=== PATIENT | female | born 1965 | race Caucasian/White ===

== ENCOUNTER 2025-02-21 20:34 | Emergency (ER) | payer SELFPAY ==
[2025-02-21 20:35] VITALS: BP 111/70; PULSE 94; RESP 18; TEMP 36.4; O2SAT 100
[2025-02-21 20:46] VITALS: BMI 23.6
[2025-02-21 21:35] VITALS: BP 113/68; PULSE 81; RESP 18; O2SAT 95
--- NOTE | 2025-02-21 21:36 | EKG12_ITS ---
Test Reason : CP Blood Pressure : */* mmHG Vent. Rate : 90 BPM Atrial Rate : 90 BPM P-R Int : 164 ms QRS Dur : 92 ms QT Int : 328 ms P-R-T Axes : 68 65 56 degrees QTcB Int : 401 ms Normal sinus rhythm Normal ECG Confirmed by EDENILSON GRACE, DAVID ([id number]), publications editor EMIL MILLIGAN ([id number]) on 02/22/2025 11:11:12 AM Referred By: [facility]G Confirmed By: DAVID PYLE MD
[2025-02-21 21:38] VITALS: O2SAT 97
--- NOTE | 2025-02-21 21:40 | RAD_ITS ---
PROCEDURE: CHEST 1 VIEW (PORTABLE) 02/21/2025 REASON FOR EXAM: CHEST PAIN TECHNIQUE: Frontal view of the chest. COMPARISON: None FINDINGS: 2.5 x 2.4 cm circular opacity within the right lower lobe may reflect a pulmonary nodule or external to lungs. Otherwise no focal consolidations. Bibasilar subsegmental atelectasis. No pleural effusion or pneumothorax. Cardiac silhouette is within normal limits. RAD/Chest 1 View (Portable) IMPRESSION: 2.5 x 2.4 cm circular opacity within the right lower lobe may reflect a pulmona ry nodule or external to lungs. Otherwise, no focal consolidations. Reading Location: [id number]
[2025-02-21 21:43] LABS: Absolute Neutrophil Count 7.1 X10^3/uL (2.0-7.7); Basophil# 0.08 X10^3/uL; Basophil% 0.7 % (0-1); Eosinophil# 0.23 X10^3/uL; Eosinophils% 1.9 % (0-5); Hemoglobin 12.4 g/dL (12.0-15.0); Lymphocyte % 24.5 % (19-41); Mean Corp Hgb Conc 33.5 g/dL (32-36); Mean Corpuscular Hgb 30.8 pg (27.0-32.0); Mean Platelet Vol. 10.2 fl (6.2-12.0); Monocyte# 1.46 X10^3/uL; Monocyte% 12.4 % (0-10); NRBC Flagged by Analyzer 0 % (0-5); Neutrophil # 7.11 X10^3/uL (2.7-7.7); Neutrophil % 60.2 % (47-70); Platelet Count 230 K/mm3 (150-450); RBC Distribution Width CV 12.4 % (11.6-14.6); RBC Distribution Width SD 41.4 fl (35.1-43.9); Red Blood Count 4.02 M/mm3 (4.2-5.4); White Blood Count 11.8 K/mm3 (4.4-11.0)
[2025-02-21 22:00] VITALS: BP 117/74; PULSE 85; RESP 18; O2SAT 98
[2025-02-21 22:15] LABS: D-Dimer Quantitative (DVT/PE) 0.69 FEU/ug/m (0.27-0.49)
[2025-02-21 22:19] LABS: Anion Gap 12 (5-15); BUN 9 mg/dL (4-19); BUN/Creat Ratio 11.9 RATIO (10-20); Carbon Dioxide 24.5 mmol/L (21.0-32.0); Chloride 95 mmol/L (98-108); Creatinine, Serum 0.72 mg/dL (0.70-1.20); EST Glomerular Filtration Rate 97 (>60); Estimated Creatinine Clearance 79.73 ml/min (50-250); Glucose 106 mg/dL (70-99); Potassium 3.9 mmol/L (3.3-5.1); Sodium Level 131 mmol/L (133-145); Troponin T High Sensitivity < 6 ng/L (<=14)
--- NOTE | 2025-02-21 22:30 | CT_ITS ---
PROCEDURE: CTA CHEST W/WO CONTRAST 02/21/2025 REASON FOR EXAM: PLEURITIC PAIN, DYSPNEA, ELEVATED D-DIMER, NODULE TECHNIQUE: CTA CHEST W/WO CONTRAST Multiplanar Sagittal and Coronal images were obtained. 3D post processing was performed CONTRAST: Isovue 370 VOLUME: 96 mL One or more dose reduction techniques were used (e.g., Automated exposure control, adjustment of the mA and/or kV according to patient size, use of iterative reconstruction technique). RADIATION DOSE SUMMARY: CTDlvol: 4.5 mGy DLP: 143 mGycm COMPARISON: Chest radiograph on 02/22/2020 FINDINGS: Lymph nodes: No significant thoracic lymphadenopathy. Heart: Normal size, without significant coronary calcification. Thoracic Aorta: No thoracic aortic aneurysm or dissection. Pulmonary Vessels: No evidence of acute pulmonary emboli through the major subsegmental branches. Lungs and Airways: Trace mucous plugging and bronchial wall thickening in the distal airways of the right middle lobe and lingula. There are foci of peripheral consolidation at the lateral aspect of the right middle lobe and anterior aspect of the left upper lobe. There are a few tiny solid pulmonary nodules, the largest measuring 4 mm in the subpleural aspect of the left lower lobe (series 2, image 84). Pleura: No significant pleural effusion. No pneumothorax. Upper Abdomen: There is an ill-defined hypodense lesion in the right hepatic lobe measuring approximately 2.6 x 1.7 cm (series 2, image 34). Bones: Mild degenerative changes of the thoracic spine. CT/CTA Chest W/WO Contrast IMPRESSION: 1. No evidence of pulmonary embolism. 2. Patchy foci of consolidation in the right middle lobe and left upper lobe, which could be the result of infection or atelectasis. Of note, there is trace mucous plugging present within the distal airways of these lobes. Recommend repeat imaging following completion of appropriate therapy to ensure resolution. 3. Ill-defined hypodense lesion in the right hepatic lobe measuring up to 2.6 cm. Recommend dedicated imaging of the liver on a nonemergent basis. 4. Multiple solid pulmonary nodules measuring up to 4 mm, consider CT chest in 12 months if patient is at high risk for malignancy per Fleischner society guidelines. Reading Location: [facility]
[2025-02-21 23:00] VITALS: BP 107/71; PULSE 78; RESP 18; O2SAT 98
--- NOTE | 2025-02-21 23:58 | ED.VIS.CHEST ---
HPI History of Present Illness Chief Complaint: Chest Pain Detail of Chief Complaint: Chest pain that started last evening Informant: patient and spouse/S.O. Onset/Context/Timing Onset: Yesterday Activity at onset: sudden Timing: Continuous Quality: Positive for Sharp Location: Right Parasternal and Left Parasternal Current Severity: Mild Maximum Severity: Moderate Worsened By: Breathing and Coughing Relieved By: Nothing Associated Symptoms: Positive for Dyspnea and Cough; Negative for Nausea, Vomiting, Diaphoresis, Fever, Lightheadedness, Acid Reflux or Palpitations Narrative Narrative: Patient is a 59-year-old woman. She has no significant past medical history. She presents with chest pain that started yesterday after picking peas. She complains of feeling short of breath. She does have a cough. The cough is nonproductive. She describes the pain as sharp. She denies fever or chills. She denies upper respiratory symptoms. She has no history of VTE or PE. She denies leg pain, swelling discoloration. states she is normally pale. Patient denies nausea, vomiting or diarrhea. Patient denies abdominal pain. Patient denies back pain. There is no complaint of pain in the neck, jaw shoulders or upper extremities. He Prior Similar Symptoms: No Recent Illness/Hospitalization: No CVD Risk Factors: Negative for Hypertension, Diabetes, Hypercholesterolemia, Family History 1' </=55 or Smoking PE Risk Factors: Negative for Recent Travel/Surgery, Recent Immobilization, Prior DVT or PE, Cancer or OCP + Smoking + >/=35 TAD Risk Factors: Negative for Marfan's Syndrome, Hypertension or Family History PFSH PFSH Allergy/AdvReac Type Severity Reaction Status Date / Time No Known Allergies Allergy Verified 02/21/25 20:35 Surgical History Hx of tonsillectomy Hx of dilation and curettage Social History (Updated 02/22/25 @ 00:[address] Ky Babin MD) household members: spouse Smoking Status: Never smoker ROS ROS ED Constitutional Constitutional ED: Denies chills, fever(s), subjective or sweats Eyes Eyes: Reports none ENT ENT ED: Denies ear pain, rhinorrhea or sore throat Cardiovascular Cardiovascular: Reports as per HPI; Denies orthopnea or paroxysmal nocturnal dyspnea Respiratory/Chest Respiratory/Chest: Reports cough and dyspnea; Denies dyspnea on exertion, orthopnea, paroxysmal nocturnal dyspnea or sputum Gastrointestinal Gastrointestinal: Denies abdominal pain, nausea or vomiting Musculoskeletal Musculoskeletal: Denies arthralgias or myalgias Integumentary Denies rash Neurologic Neurologic: Denies headache(s), paresthesias or weakness Endocrine Endocrinology: Denies cold intolerance or heat intolerance EXAM Physical Exam Const Vital Signs: 02/21/25 20:35 02/21/25 20:46 02/21/25 21:35 Temperature 97.6 F L Temperature Source Temporal Pulse Rate 94 81 Pulse Rate [Lying] Pulse Rate [Sitting (for 1 minute prior to obtaining)] Pulse Rate [Standing (for 1 minute prior to obtaining)] Respiratory Rate 18 18 Respiratory Effort Normal Non-Labored Respiratory Pattern Normal Blood Pressure 111/70 113/68 Blood Pressure [Lying] Blood Pressure [Sitting (for 1 minute prior to obtaining)] Blood Pressure [Standing (for 1 minute prior to obtaining)] Blood Pressure Mean 83 83 Blood Pressure Mean [Lying] Blood Pressure Mean [Sitting (for 1 minute prior to obtaining)] Blood Pressure Mean [Standing (for 1 minute prior to obtaining)] Pulse Ox 100 95 Oxygen Delivery Method Room Air Room Air 02/21/25 21:38 02/21/25 22:00 02/21/25 23:00 Temperature Temperature Source Pulse Rate 85 78 Pulse Rate [Lying] Pulse Rate [Sitting (for 1 minute prior to obtaining)] Pulse Rate [Standing (for 1 minute prior to obtaining)] Respiratory Rate 18 18 Respiratory Effort Respiratory Pattern Blood Pressure 117/74 107/71 Blood Pressure [Lying] Blood Pressure [Sitting (for 1 minute prior to obtaining)] Blood Pressure [Standing (for 1 minute prior to obtaining)] Blood Pressure Mean 88 83 Blood Pressure Mean [Lying] Blood Pressure Mean [Sitting (for 1 minute prior to obtaining)] Blood Pressure Mean [Standing (for 1 minute prior to obtaining)] Pulse Ox 97 98 98 Oxygen Delivery Method Room Air Room Air Room Air 02/22/25 00:00 02/22/25 00:13 Temperature Temperature Source Pulse Rate 77 Pulse Rate [Lying] 78 Pulse Rate [Sitting (for 1 minute prior to obtaining)] 82 Pulse Rate [Standing (for 1 minute prior to obtaining)] 93 Respiratory Rate 18 Respiratory Effort Respiratory Pattern Blood Pressure 95/54 L Blood Pressure [Lying] 115/74 Blood Pressure [Sitting (for 1 minute prior to obtaining)] 124/78 H Blood Pressure [Standing (for 1 minute prior to obtaining)] 119/79 Blood Pressure Mean 67 Blood Pressure Mean [Lying] 87 Blood Pressure Mean [Sitting (for 1 minute prior to obtaining)] 93 Blood Pressure Mean [Standing (for 1 minute prior to obtaining)] 92 Pulse Ox 99 Oxygen Delivery Method Room Air Positive well nourished and well developed Constitutional Narrative: Vital signs are unremarkable. When I entered the room to evaluate her at midnight she was hypotensive with systolic of 95. General Appearance ED: well developed, NAD and pallor HEENT Reports TM's clear and moist mucous membranes normocephalic and atraumatic Tympanic Membrane ED: Yes TM's clear Eyes PERRL and EOMs intact bilaterally General Eye ED: Negative for pale conjunctiva or scleral icterus Neck no lymphadenopathy, supple and no JVD Chest Wall inspection of chest normal and palpation of chest normal Resp normal respiratory effort and clear to auscultation bilaterally Effort and Inspection: Negative for respiratory distress Cardio regular rate, regular rhythm, S1 normal heart sound, S2 normal heart sound and no murmurs GI normal to inspection, nondistended, normoactive bowel sounds, soft to palpation, non-tender, non-distended and no masses; Negative for hepatosplenomegaly Extremity normal to inspection Extremity Narrative: There is no asymmetry, swelling, discoloration, leg vein distention, palpable cords or tenderness along the distribution of the deep venous system. Neuro oriented x3 and CN's II-XII intact bilaterally Sensorium / Orientation: awake and alert Motor Exam: strength 5/5 throughout Psych mental status grossly normal Skin no rashes or lesions noted and no wounds General Skin Exam: pallor; Negative for jaundice MDM MDM MDM Narrative Medical decision making narrative: Nurse protocols was entered for chest pain workup cardiac etiology. Differential diagnosis would include cardiac versus noncardiac chest pain noncardiac chest pain would be pneumonia, pleurisy, pulmonary embolus doubt GI pathology. After patient inform me that she had pleuritic pain and the fact that her chest x-ray reveals what appears to be a nodule on the right side D-dimer was added. D-dimer was elevated even after correction for age. CTA was obtained. I did not see any evidence of pulmonary embolus there appears to be an infiltrate right middle lobe and left upper lobe. These are peripherally and probably explain her pleuritic pain. She then was asked if she had a cough because initially she did not. Since patient is now hypotensive we will have nurse perform orthostatic vitals. Based on port score of 48 and curb 65 score of 0 patient is considered low risk can be treated as an outpatient. History & Record Review Discussion w/independent historian: Patient Lab Data Attestation: I reviewed the patient's lab results. Lab results narrative: White count is slightly elevated 11.8 thousand with no shift. D-dimer is elevated 0.69. Electrolyte panel Veals mild hyponatremia. First troponin is less than 6. Labs: Laboratory Results - last 24 hr 02/21/25 02/21/25 20:50 23:37 WBC 11.8 H RBC 4.02 L Hgb 12.4 Hct 37.0 MCV 92.0 MCH 30.8 MCHC 33.5 RDW Std Deviation 41.4 RDW Coeff of Dano 12.4 Plt Count 230 MPV 10.2 Immature Gran % (Auto) 0.300 Neut % (Auto) 60.2 Lymph % (Auto) 24.5 Tate % (Auto) 12.4 H Eos % (Auto) 1.9 Baso % (Auto) 0.7 Absolute Neuts (auto) 7.1 Absolute Lymphs (auto) 2.90 Nucleated RBC % 0 D-Dimer Quant (PE/DVT) 0.69 H* Sodium 131 L Potassium 3.9 Chloride 95 L Carbon Dioxide 24.5 Anion Gap 12 BUN 9 Creatinine 0.72 Estim Creat Clear Calc 79.73 Est GFR (MDRD) Non-Af 97 BUN/Creatinine Ratio 11.9 Glucose 106 H Calcium 9.0 Troponin T High Sens < 6 Troponin T Hi Sens 2 Hr < 6 Radiography Diagnostic Testing: Clinical Impression(s) from Imaging Studies Chest X-Ray 02/21/25 21:40 IMPRESSION: 2.5 x 2.4 cm circular opacity within the right lower lobe may reflect a pulmonary nodule or external to lungs. Otherwise, no focal consolidations. Reading Location: [id number] Chest CTA 02/21/25 22:30 IMPRESSION: 1. No evidence of pulmonary embolism. 2. Patchy foci of consolidation in the right middle lobe and left upper lobe, which could be the result of infection or atelectasis. Of note, there is trace mucous plugging present within the distal airways of these lobes. Recommend repeat imaging following completion of appropriate therapy to ensure resolution. 3. Ill-defined hypodense lesion in the right hepatic lobe measuring up to 2.6 cm. Recommend dedicated imaging of the liver on a nonemergent basis. 4. Multiple solid pulmonary nodules measuring up to 4 mm, consider CT chest in 12 months if patient is at high risk for malignancy per Fleischner society guidelines. Reading Location: [id number] Treatment and Re-Evaluation :: Patient's pressure improved. Orthostatics were negative. and patient were informed of CAT scan results. Based on the curb 65 score of 0 reports score of 48 she is an outpatient candidate. She was started on levofloxacin. She was struck to take ibuprofen for her pleuritic pain. She is to follow-up with her doctor in the next couple of days. Discharge Plan Triage Chief Complaint: Chest Pain ED Provider: Ky Babin Dx/Rx/DC Orders Clinical Impression: Bilateral interstitial pneumonia, Mucus plug in respiratory tract, Pleuritic chest pain Instructions: ED Pneumonia (Adult) Primary Care Provider: Pieter Escoto Referrals: Pieter Escoto PA-C [Primary Care Provider] - 3-5 Days Activity Restrictions/Additional Instructions: 1. Take antibiotics until gone 2. If you develop a temperature greater than 100, have shaking chills, or short of breath with minimal activity return to the emergency department 3. Take 3 ibuprofen tablets every 6-8 hours for your chest pain for the next 3 to 4 days Print Language: Belarusian Disposition Disposition: Home, Self Care
[2025-02-22] VITALS: BP 95/54; PULSE 77; RESP 18; O2SAT 99
[2025-02-22 00:01] LABS: Troponin T High Sens 2 HR < 6 ng/L (<=14)
[2025-02-22 00:13] VITALS: BP 115/74; BP 119/79; BP 124/78; PULSE 78; PULSE 82; PULSE 93
[2025-02-22] MEDS: levoFLOXacin 750 MG Tablet PO (00:26)
[2025-02-22 00:29] VITALS: BP 114/75; PULSE 79; RESP 18; TEMP 36.8; O2SAT 99
== END 2025-02-22 00:30 | disposition home or self-care (01) ==
PROVIDERS: Emergency Provider Emergency Medicine; PCP Physician Assistant; Visit Provider Emergency Medicine
DX: R07.81 Pleurodynia (principal); J84.9 Interstitial pulmonary disease, unspecified; J98.09 Other diseases of bronchus, not elsewhere classified
CPT/HCPCS: 71045; 71275; 80048; 84484; 85025; 85379; 93005; 99285; Q9967; A4216; J2405